=== PATIENT | male | born 1965 | race Caucasian/White ===

== ENCOUNTER 2017-08-29 12:00 | Emergency (ER) | payer OTHER ==
[~2017-08-29] VITALS: Ht 177.8 cm; Wt 133.6 kg
[2017-08-29 12:02] VITALS: TEMP 98.3
[2017-08-29] MEDS ORDERED: ALTACE 10MG TAB10 MG PO (12:15)
[2017-08-29] MEDS ORDERED: ZEBETA 5MG5 MG PO (12:15)
[2017-08-29] MEDS ORDERED: NORVASC 10MG10 MG PO (12:15)
[2017-08-29] MEDS ORDERED: ZOCOR 20MG20 MG PO (12:16)
[2017-08-29] MEDS ORDERED: FLEXERIL5 MG PO (12:17)
[2017-08-29] MEDS ORDERED: NORCO 325 MG-51 TAB PO (12:17)
[2017-08-29 14:55] VITALS: BP 134/82; PULSE 71
== END 2017-08-29 15:05 | disposition home or self-care (01) ==
LOC: COL.ER 12:00
DX: S42.251A Displaced fracture of greater tuberosity of right humerus, initial encounter for closed fracture (principal); I10 Essential (primary) hypertension; E78.00 Pure hypercholesterolemia, unspecified; Z98.890 Other specified postprocedural states; W01.0XXA Fall on same level from slipping, tripping and stumbling without subsequent striking against object, initial encounter; Y92.89 Other specified places as the place of occurrence of the external cause; Y99.0 Civilian activity done for income or pay
CPT/HCPCS: J0330; J2270; J2704